=== PATIENT | female | born 1945 | race Caucasian/White ===

== ENCOUNTER 2018-02-04 05:35 | Day surgery (SDC) | payer OTHER ==
[~2018-02-04 05:35] MED LIST: CALTRATE 600+D1 EAC1 PO; IBANDRONATE SO150 MG PO; ISOSORBIDE DINI20 MG PO; LOSARTAN-HCTZ1 EAC1 PO; MINUS WEIGHT P1 EACH PO
== END 2018-02-04 15:00 | disposition home or self-care (01) ==
LOC: CIR.AMB 05:35
DX: Z90.11 Acquired absence of right breast and nipple (principal)